=== PATIENT | female | born 1985 | race American Indian/Alaskan Native ===

== ENCOUNTER 2017-06-07 14:03 | Emergency (ER) | payer BC, OTHER ==
[2017-06-07 14:07] VITALS: BP 104/68; PULSE 96; TEMP 98; BMI 21.4
--- NOTE | 2017-06-07 14:34 | PDOC ---
Attending Attestation - Resident Resident Name: Tito Mars - ED Attending Attestation I have performed the following: I have examined & evaluated the patient, The case was reviewed & discussed with the resident, I agree w/resident's findings & plan, Exceptions are as noted - HPI HPI: 06/07/17 14:59 32yo F with no PMH p/w non prod cough x 2 days and nasal congestion. Pt returned from 3 week trip to [facility] yesterday. Reports subjective fever on plane yesterday and subjective fever yesterday evening. Pt was not on malaria ppx during her trip as she states she is always there. Pt was sent in by Dr. Snell as she was c/o weakness when she got off the plane yesterday requiring a wheelchair to assist. She reports this weakness was generalized but is improved today. Denies CP, SOB, rashes, headache, focal weakness or numbness, urinary sxs. - Physicial Exam PE: 06/07/17 15:16 GENERAL: Awake, alert, and fully oriented, in no acute distress HEAD: No signs of trauma EYES: PERRLA, EOMI, sclera anicteric, conjunctiva clear ENT: Auricles normal inspection, hearing grossly normal, nares patent, oropharynx clear without exudates. Moist mucosa NECK: Normal ROM, supple, no lymphadenopathy, JVD, or masses LUNGS: Breath sounds equal, clear to auscultation bilaterally. No wheezes, and no crackles HEART: Regular rate and rhythm, normal S1 and S2, no murmurs, rubs or gallops ABDOMEN: Soft, nontender, normoactive bowel sounds. No guarding, no rebound. No masses EXTREMITIES: Normal range of motion, no edema. No clubbing or cyanosis. No cords, erythema, or tenderness NEUROLOGICAL: Normal speech, cranial nerves intact, negative pronator drift, 5/ 5 strength in all 4 extremities, normal sensation to light touch in all 4 extremities, normal cerebellar exam, normal gait, normal reflexes and tone SKIN: Warm, Dry, normal turgor, no rashes or lesions noted. - Medical Decision Making 06/07/17 15:16 32-year-old female with no medical history presents with 2 days of subjectiv fevers, nasal congestion, weakness and coughing. Vitals are within normal limits. Patient likely has a viral infection, however is at risk for malaria given her recent travel. If there is any sign of anemia or hemolysis on her blood work, will consider getting a blood smear. Will also obtain a flu swab. Will discuss the case with Dr. Snell.
--- NOTE | 2017-06-07 14:53 | PDOC ---
History of Present Illness - General Chief Complaint: SIRS, Suspected/Possible Stated Complaint: FEVER/PCP SENT Time Seen by Provider: 06/07/17 14:19 - History of Present Illness Initial Comments: 06/07/17 14:48 32 yo F with no significant pmh who presents with cough. Patient reports non productive cough and fever for the past 1-2 days. Also endorses rhinorrhea, and congestion. Recently returned from [facility] following 3 week stay with family members. did not receive vaccinations/prophylaxis prior to traveling. Denies N/V , chest pain, SOB, myalgias, night sweats, weight loss, abdominal pain, diarrhea , constipation, urinary complaints, ROWAN, neck stiffness, weakness, lightheadedness, convulsions. Returned from 26 hour plane trip. Denies calf pain. leg swelling, hemoptysis, OCP use, h/o DVT/PE, malignancy, trauma or surgery within 6 weeks. Denies hiking, camping, drinking from tap water. Sent here from PCP Easton Snell for concern of malrial illness. Past History - Past Medical History Allergies/Adverse Reactions: Allergies Allergy/AdvReac Type Severity Reaction Status Date / Time No Known Allergies Allergy Verified 06/07/17 14:07 Home Medications: Ambulatory Orders Dextroamphetamine/Amphetamine [Adderall Xr 20 mg Capsule] 40 mg PO DAILY Lansoprazole [Prevacid 24Hr (OTC) -] 15 mg PO DAILY 06/07/17 Spironolactone 50 mg PO DAILY 06/07/17 COPD: No Other medical history: NONE - Suicide/Smoking/Psychosocial Hx Smoking History: Never smoked Hx Alcohol Use: Yes (SOCIAL) Drug/Substance Use Hx: No Review of Systems - Review of Systems Comments:: 06/07/17 14:54 GENERAL/CONSTITUTIONAL: No fever or chills. No weakness. HEAD, EYES, EARS, NOSE AND THROAT: No change in vision. No ear pain or discharge. No sore throat.- CARDIOVASCULAR: No chest pain or shortness of breath RESPIRATORY:+ cough, and congestion. No wheezing, or hemoptysis. GASTROINTESTINAL: No nausea, vomiting, diarrhea or constipation. GENITOURINARY: No dysuria, frequency, or change in urination. MUSCULOSKELETAL: No joint or muscle swelling or pain. No neck or back pain. SKIN: No rash NEUROLOGIC: No headache, vertigo, loss of consciousness, or change in strength/ sensation. ENDOCRINE: No increased thirst. No abnormal weight change HEMATOLOGIC/LYMPHATIC: No anemia, easy bleeding, or history of blood clots. ALLERGIC/IMMUNOLOGIC: No hives or skin allergy. *Physical Exam - Vital Signs Last Vital Signs Temp Pulse Resp BP Pulse Ox 98.0 F 96 H 20 104/68 98 06/07/17 14:03 06/07/17 14:03 06/07/17 14:03 06/07/17 14:03 06/07/17 14:03 - Physical Exam Comments: 06/07/17 14:54 GENERAL: Awake, alert, and fully oriented, in no acute distress HEAD: No signs of trauma, normocephalic, atraumatic EYES: PERRLA, EOMI, sclera anicteric, conjunctiva clear ENT: Auricles normal inspection, hearing grossly normal, nares patent, oropharynx clear without exudates. Moist mucosa NECK: Normal ROM, supple, no lymphadenopathy, JVD, or masses LUNGS: Diffuse exp rhonci throughout lung howard. No distress, speaks full sentences, HEART: Regular rate and rhythm, normal S1 and S2, no murmurs, rubs or gallops, peripheral pulses normal and equal bilaterally. ABDOMEN: Soft, nontender, normoactive bowel sounds. No guarding, no rebound. No masses EXTREMITIES : Normal inspection, Normal range of motion, no edema. No clubbing or cyanosis. SKIN: Warm, Dry, normal turgor, no rashes or lesions noted. ED Treatment Course - LABORATORY CBC & Chemistry Diagram: 06/07/17 15:15 06/07/17 15:15 Medical Decision Making - Medical Decision Making 06/07/17 15:29 32 yo F w/ no significant pmh referred by PCP for non productive cough, and fever following return from [facility]. Concerned of malarial type illness. Recently returned from [facility] following 3 week stay with family members and did not receive vaccinations/prophylaxis prior to traveling. Denies N/V, chest pain, SOB, myalgias, night sweats, weight loss, abdominal pain, diarrhea, constipation, urinary complaints, ROWAN, neck stiffness, weakness, lightheadedness , convulsions. Returned from 26 hour plane trip. Denies calf pain. leg swelling , hemoptysis, OCP use, h/o DVT/PE, malignancy, trauma or surgery within 6 weeks. Denies hiking, camping. Physical exam with diffuse exp wheezing and hemodynamic stability. S/s consitent with viral URI; cough, congestion, rhinorrhea. Low suspicion of malaria based on normal physical exam with absent evidence of jaundice, scleral icterus, N/V, weakness, wt. loss. ED Course: EKG: NSR w/absent VALENTIN, STD, or TWI 06/07/17 15:43 UA: 2+ blood, Neg nitrite. 06/07/17 15:50 Urine preg neg Flu B + 06/07/17 15:51 Tamiflu 06/07/17 15:56 AST/ALT: 62/111 Alk Phosph: 153 Advised to f/u outpatient with Dr. Snell for transaminitis/trend LFT's. Spoke to Dr. Snell. Dr. Snell Sent Tamiflu to patient pharmacy. 06/07/17 16:07 Patient stable at bedside Will discharge with return precautions. *DC/Admit/Observation/Transfer Diagnosis at time of Disposition: Influenza B - Discharge Dispostion Disposition: HOME Condition at time of disposition: Stable Admit: No - Referrals Referrals: Easton Snell MD [Primary Care Provider] - - Patient Instructions Printed Discharge Instructions: DI for Influenza -- Adult Additional Instructions: Please return to the emergency department with any new or worsening symptoms or concerns. Please continue to stay adequately hydrated - Post Discharge Activity - Attestations Physician Attestion: 06/07/17 15:53 I attest to the information provided in this note.
[2017-06-07 15:25] LABS: BASOPHIL 0.4 % (0-2.0); EOSINOPHIL 0.9 % (0-4.5); MCH 28.9 pg (25.7-33.7); MCHC 33.2 g/dl (32.0-36.0); MEAN CELL VOLUME 87.1 fl (80-96); NEUTROPHILS 40.2 % (42.8-82.8); PLATELET COUNT 196 K/MM3 (134-434); RDW 12.1 % (11.6-15.6); WHITE BLOOD COUNT 4.7 K/mm3 (4.0-10.0)
[2017-06-07 15:31] LABS: URINE APPEARANCE CLOUDY; URINE BILIRUBIN NEGATIVE (NEGATIVE); URINE BLOOD 2+ (NEGATIVE); URINE COLOR LTYELLOW; URINE GLUCOSE (UA) NEGATIVE (NEGATIVE); URINE KETONE NEGATIVE (NEGATIVE); URINE NITRITE NEGATIVE (NEGATIVE); URINE PROTEIN NEGATIVE (NEGATIVE); URINE UROBILINOGEN NEGATIVE mg/dL (0.2-1.0)
[2017-06-07 15:39] LABS: URINE LEUK ESTERASE 2+ (NEGATIVE)
[2017-06-07 15:47] LABS: ALBUMIN 3.5 g/dl (3.4-5.0); ANION GAP 7 (8-16); BILIRUBIN,TOTAL 0.2 mg/dL (0.2-1.0); CALCIUM 8.1 mg/dL (8.5-10.1); CO2 29 mmol/L (21-32); CREATININE 0.7 mg/dL (0.55-1.02); GLUCOSE,RANDOM 80 mg/dL (74-106); SGPT/ALT 111 U/L (12-78); TOT PROT 6.8 g/dl (6.4-8.2)
[2017-06-07 15:48] LABS: ALK PHOS 153 U/L (45-117)
[2017-06-07 15:49] LABS: URINE BACTERIA MODERATE /hpf (NONE SEEN); URINE MUCUS RARE; URINE RBC 11 /hpf (0-3); URINE WBC 12 /hpf (3-5)
[2017-06-07 15:50] LABS: SGOT/AST 62 U/L (15-37)
[2017-06-07] MEDS ORDERED: OSELTAMIVIR PHOSPHATE 75 MG CAPSULE PO ONE (15:51)
[2017-06-07] MEDS ORDERED: OSELTAMIVIR PHOSPHATE 75 MG CAPSULE ONE (15:55)
[2017-06-07 18:59] LABS: URINE LEUK ESTERASE 1+ (NEGATIVE)
--- NOTE | 2017-06-10 01:41 | EKG ---
Test Reason : Blood Pressure : / mmHG Vent. Rate : 078 BPM Atrial Rate : 078 BPM P-R Int : 120 ms QRS Dur : 080 ms QT Int : 378 ms P-R-T Axes : 057 058 040 degrees QTc Int : 430 ms NORMAL SINUS RHYTHM NORMAL ECG NO PREVIOUS ECGS AVAILABLE Confirmed by NURIS MEJIA MD ([id number]) on 06/10/2017 1:41:08 AM Referred By: Confirmed By:NURIS MEJIA MD
== END 2017-06-07 16:50 | disposition home or self-care (01) ==
LOC: JER 14:03
DX: J10.1 Influenza due to other identified influenza virus with other respiratory manifestations (principal)
CPT/HCPCS: 36415; 80053; 81003; 81015; 84703; 85025; 87804; 93005; 93010; 99283-25